=== PATIENT | male | born 1975 | race Caucasian/White ===

== ENCOUNTER 2024-01-11 09:10 | Outpatient (CLI) | payer OTHER ==
--- NOTE | 2024-01-11 16:31 | MRI Report ---
PROCEDURE: Ankle RT WO INDICATIONS: ANKLE PAIN TECHNIQUE: Noncontrast sagittal T1 spin echo and T2 fast spin echo with fat saturation, axial proton density fas t spin echo and T2 fast spin echo with fat saturation, coronal T1 spin echo and T2 fast spin echo wit h fat saturation through the ankle/hindfoot. COMPARISON: None. FINDINGS: Image quality: Excellent. Bones and joints: Small osteochondral injuries are noted involving posterior weightbearing portion of distal tibial plafond measures up to 4 mm in size. No other area of marrow edema. No fracture or dis location. No hindfoot coalitions. No osteochondral injuries of the talar dome. Small tibiotalar join t effusion is seen, no gross loose bodies. Medial structures: The posterior tibialis, flexor digitorum longus, and flexor hallucis longus tendo ns are intact. Small amount of fluid distending flexer tendon sheath is seen. The posterior tibial ne urovascular bundle appears normal within the tarsal tunnel, without extrinsic mass effect. The delto id ligament and spring ligament are mildly thickened with intrasubstance T2 hyperintense signal. Lateral structures: The anterior talofibular, calcaneofibular, and posterior talofibular ligaments a ppear mildly thickened. More superiorly, the anterior and posterior tibiofibular ligaments also appe ars thickened with intrasubstance T2 hyperintense signal. The tibiofibular syndesmosis is normal in width at 2 mm or less. The peroneus longus and brevis tendons demonstrate normal location and morpho logy. Small amount of fluid distending and peroneus tendon sheath is also noted extending from the le silvia of lateral malleolus tip to the level of cuboid. The sinus tarsi demonstrates normal fatty signal , without edema, fibrosis, or cyst formation. Visualized sinus tarsi components (cervical ligament, interosseous talocalcaneal ligament, roots of the inferior extensor retinaculum) appear normal. Anterior structures: The tibialis anterior, extensor hallucis longus, and extensor digitorum longus tendons appear intact. Posterior and plantar structures: Distal Achilles tendinosis at its posterior calcaneal insertion is seen. Medial and lateral bands of the plantar fascia are of normal thickness. No abductor digiti rosangela nti muscle atrophy to suggest Jose neuropathy. IMPRESSION: 1. Small osteochondral injuries involving posterior aspect of distal tibial plafond. No osteochondral injuries of talar dome. No fracture or dislocation. Small joint effusion, no loose bodies. 2. Low-grade tenosynovitis involving flexor tendons and peroneus tendons as above. 3. Low-grade sprain/intrasubstance partial thickness tear involving medial and lateral ankle ligament s. No full-thickness ligament rupture. 4. Distal Achilles tendinosis, no Achilles tendon rupture. Reviewed by: Mynor Maxwell MD on 01/11/2024 4:30 PM PDT Approved by: Mynor Maxwell MD on 01/11/2024 4:30 PM PDT Station ID: [id number]
== END 2024-01-11 09:11 | disposition home or self-care (01) ==
LOC: DI 09:10
PROVIDERS: ATTEND Orthopaedic Surgery
DX: S99.911A Unspecified injury of right ankle, initial encounter (principal); M65.9 Synovitis and tenosynovitis, unspecified; S93.401A Sprain of unspecified ligament of right ankle, initial encounter